=== PATIENT | male | born 1960 | race Two or more races ===

== ENCOUNTER 2025-09-07 00:25 | Inpatient (IN) | payer MEDICARE, OTHER ==
[~2025-09-07] VITALS: Ht 175.3 cm; Wt 94.8 kg
[2025-09-07] MEDS ORDERED: LISI-768 PO (00:39)
[2025-09-07] MEDS ORDERED: DONE5TAB34 PO (00:39)
[2025-09-07] MEDS ORDERED: METO-357 PO (00:39)
[2025-09-07] MEDS ORDERED: ASPI-1420 PO (00:39)
[2025-09-07] MEDS ORDERED: EMPA10TA PO (00:39)
[2025-09-07 00:50] LABS: PLATELET COUNT (AUTO) 141 K/uL (150-450); RED BLOOD CELL COUNT(AUTO) 4.39 MIL/uL (4.5-6.0); RED CELL DISTRIBUTION WIDTH 12.9 % (11.5-15.0); WHITE BLOOD COUNT (AUTO) 5.1 K/uL (4.3-11.0)
[2025-09-07 01:02] LABS: CALCIUM, SERUM 8.4 mg/dL (8.5-10.1); CREATININE 0.7 mg/dL (0.6-1.3); SODIUM SERUM 143 mmol/L (136-145); UREA NITROGEN, BLOOD 17 mg/dL (7-18)
[2025-09-07 01:06] LABS: ASPARTATE AMINOTRANSFERASE 15 U/L (15-37); TOTAL PROTEIN, SERUM 5.8 g/dL (6.4-8.2)
[2025-09-07 01:09] LABS: ALCOHOL, BLOOD < 3 mg/dL (0-10)
[2025-09-07 01:28] LABS: APPEARANCE,URINE CLEAR (CLEAR); BLOOD, URINE NEGATIVE Ery/uL (NEGATIVE); LEUKOCYTE ESTERASE ,URINE NEGATIVE (NEGATIVE); NITRITE, URINE NEGATIVE (NEGATIVE); UGLUCOSE NEGATIVE (NEGATIVE)
[2025-09-07 01:39] LABS: ADD URINE CULTURE YES; SQUAMOUS EPITHELIAL CELL,UR Few /HPF (None Seen)
[2025-09-07 01:43] LABS: AMPHETAMINE, URINE NEGATIVE (NEGATIVE); BARBITURATE, URINE NEGATIVE (NEGATIVE); BENZODIAZEPINE, URINE NEGATIVE (NEGATIVE); CANNABINOID, URINE NEGATIVE (NEGATIVE); COCCAINE, URINE NEGATIVE (NEGATIVE); OPIATE, URINE NEGATIVE (NEGATIVE)
[2025-09-07] MEDS ORDERED: TRAZ-182 PO (02:21)
[2025-09-07] MEDS ORDERED: RIZA10TA98 PO (02:21)
[2025-09-07] MEDS ORDERED: LORAZEPAM INJ 2 MG/ML VIAL ONE (02:31)
[2025-09-07] MEDS: LORAZEPAM INJ 2 MG/ML VIAL IV ONE (02:33)
[2025-09-07] MEDS ORDERED: ZOLPIDEM TARTRATE 5 MG TABLET PO PRN (04:30)
[2025-09-07] MEDS ORDERED: Z GUARD REMEDY 4 OZ OINT TP PRN (04:30)
[2025-09-07] MEDS ORDERED: MAG HYDROX/AL HYDROX/SIMETH 30 ML UDC PO PRN (04:30)
[2025-09-07] MEDS ORDERED: ACETAMINOPHEN 325 MG TABLET PO PRN (04:30)
[2025-09-07] MEDS ORDERED: HYDROCODONE/APAP 5/325MG TABLET PO PRN (04:30)
[2025-09-07] MEDS ORDERED: MAGNESIUM HYDROXIDE 30 ML UDC PO PRN (04:30)
[2025-09-07] MEDS ORDERED: ONDANSETRON HCL/PF 4 MG/2 ML VIAL IVP PRN (04:30)
[2025-09-07] MEDS ORDERED: SENN-261 PO (08:00)
[2025-09-07] MEDS ORDERED: NA P133E RC (08:00)
[2025-09-07] MEDS ORDERED: MAGN400O6 PO (08:00)
[2025-09-07] MEDS ORDERED: RIZA10TA28 PO (08:00)
[2025-09-07] MEDS ORDERED: ACET-2605 PO (08:00)
[2025-09-07] MEDS ORDERED: ACET-868 PO (08:00)
[2025-09-07] MEDS ORDERED: ZOLP5TAB2 PO (08:00)
[2025-09-07 08:30] VITALS: BP 153/74; TEMP 97.9; O2SAT 99
[2025-09-07] MEDS: ASPIRIN 81 MG TAB.CHEW PO SCH (09:16)
[2025-09-07] MEDS: PANTOPRAZOLE 40 MG TABLET.DR PO SCH (09:16)
[2025-09-07 11:30] VITALS: BP 151/71; TEMP 98.1; O2SAT 99
[2025-09-07 12:00] VITALS: BP 151/71; TEMP 98.1; O2SAT 99
[2025-09-07] MEDS: METOPROLOL SUCCINATE 50 MG TAB.SR.24H PO SCH (17:00)
[2025-09-07 19:22] LABS: PHOSPHORUS 3.2 mg/dL (2.5-4.9)
[2025-09-07 19:32] LABS: LDL 71.0 mg/dL (0-99)
[2025-09-07 20:00] VITALS: BP 127/73; TEMP 98.1; O2SAT 99
[2025-09-07] MEDS: DONEPEZIL 5 MG TABLET PO SCH (21:42)
[2025-09-08] VITALS: BP 139/83; TEMP 98.1; O2SAT 99
[2025-09-08 04:00] VITALS: BP 128/75; TEMP 98.5; O2SAT 99
[2025-09-08] MEDS: EMPAGLIFLOZIN 10 MG TABLET PO SCH (08:53)
[2025-09-08 08:54] VITALS: BP 136/73
[2025-09-08] MEDS: LISINOPRIL (5MG) 5 MG TABLET PO SCH (08:54)
[2025-09-08] MEDS ORDERED: ASPIRIN EC 81 MG TABLET.DR PO SCH (09:00)
[2025-09-08] MEDS ORDERED: QUETIAPINE FUMARATE 25 MG TABLET PO SCH (17:00)
== END 2025-09-08 13:30 | DRG 309 ==
LOC: ER 00:32 → TELE IN 05:54 → TELE 08:00
DX: I47.10 Supraventricular tachycardia, unspecified (principal); F03.92 Unspecified dementia, unspecified severity, with psychotic disturbance; E11.9 Type 2 diabetes mellitus without complications; I10 Essential (primary) hypertension; F29 Unspecified psychosis not due to a substance or known physiological condition; G47.00 Insomnia, unspecified; E80.6 Other disorders of bilirubin metabolism; Z73.6 Limitation of activities due to disability; Z87.820 Personal history of traumatic brain injury; Z79.84 Long term (current) use of oral hypoglycemic drugs
CPT/HCPCS: 36415; 71045-TC; 80048-TC; 80061-TC; 80076-TC; 81001; 83735-TC; 84100-TC; 84439-TC; 84443-TC; 84484-TC; 85025-TC; 87086-TC; 93307-TC; G0378; G0480; J2060